=== PATIENT | female | born 1995 | race Caucasian/White ===

== ENCOUNTER 2019-03-20 09:43 | Inpatient (IN) | payer OTHER ==
[2019-03-20] MEDS ORDERED: LACTATED RINGER'S 1,000 ML IV (11:27)
[2019-03-20] MEDS ORDERED: LIDOCAINE 1% (MPF) 30 ML INJ INJ (11:30)
[2019-03-20] MEDS ORDERED: IBUPROFEN 600 MG TAB PO (11:30)
[2019-03-20] MEDS ORDERED: OXYTOCIN 30 UNITS/LR 500 ML IV ×2 (11:30)
[2019-03-20] MEDS ORDERED: MISOPROSTOL 200 MCG TAB PR (11:30)
[2019-03-20] MEDS ORDERED: CARBOPROST 250 MCG INJ IM (11:30)
[2019-03-20] MEDS ORDERED: BUTORPHANOL 2 MG INJ IV (11:30)
[2019-03-20] MEDS ORDERED: METHYLERGONOVINE 0.2 MG INJ IM (11:30)
[2019-03-20] MEDS ORDERED: MINERAL OIL LIGHT 10 ML VIAL TOP (11:30)
[2019-03-20] MEDS: LACTATED RINGER'S 1,000 ML IV ×2 (12:51→17:43)
[2019-03-20 13:30] LABS: ADD MAN DIFF? NO
[2019-03-20 13:31] LABS: WHITE BLOOD COUNT 7.8 10^3/ul (4.8-10.8)
[2019-03-20 13:31] LABS: BASOPHILS % 0.4 % (0.0-2.0); EOSINOPHILS % 0.1 % (0.0-7.0); HEMATOCRIT 33.9 % (37.0-47.0); HEMOGLOBIN 11.4 g/dl (12.0-16.0); LYMPHOCYTES # 1.5 10^3/ul (0.8-2.9); LYMPHOCYTES % 18.8 % (15.0-51.0); MEAN CORPUSCULAR HEMOGLOBIN 29.8 pg (29.0-33.0); MEAN CORPUSCULAR HGB CONC 33.6 g/dl (32.0-37.0); MEAN CORPUSCULAR VOLUME 88.7 fl (82.0-101.0); MEAN PLATELET VOLUME 10.5 fl (7.4-10.4); MONOCYTE # 0.5 10^3/ul (0.3-0.9); NEUTROPHIL # 5.8 10^3/ul (1.6-7.5); NEUTROPHILS % 74.4 % (39.0-77.0); PLATELET COUNT 181 10^3/UL (140-415); RED BLOOD COUNT 3.82 10^6/ul (4.20-5.40); RED CELL DISTRIBUTION WIDTH 14.2 % (11.5-14.5)
[2019-03-20] MEDS: MISOPROSTOL 50 MCG CAPSULE PO ×3 (13:40→21:00)
[2019-03-20 13:51] LABS: INR 0.82; PARTIAL THROMBOPLASTIN TIME 25.2 Sec (23.0-35.0); PROTIME 11.4 Sec (11.9-14.9); PT RATIO 0.9
[2019-03-20] MEDS: AMPICILLIN 2 GM/NS (PMX) 100 ML IV (15:11)
[2019-03-20 15:13] LABS: ALANINE AMINOTRANSFERASE 16 IU/L (13-69); ALBUMIN 3.4 g/dl (3.3-4.9); ALKALINE PHOSPHATASE 165 IU/L (42-121); ANION GAP 10 (5-13); ASPARTATE AMINO TRANSFERASE 26 IU/L (15-46); BILIRUBIN,INDIRECT 0.1 mg/dl (0-1.1); BILIRUBIN,TOTAL 0.1 mg/dl (0.2-1.3); BLOOD UREA NITROGEN 11 mg/dl (7-20); CALCIUM 9.7 mg/dl (8.4-10.2); CARBON DIOXIDE 20 mmol/L (21-31); CHLORIDE 109 mmol/L (97-110); CREATININE 0.69 mg/dl (0.44-1.00); Estimated GFR > 60 mL/min (>60); GLUCOSE 98 mg/dl (70-220); POTASSIUM 3.8 mmol/L (3.5-5.1); SODIUM 139 mmol/L (135-144); TOTAL PROTEIN 6.8 g/dl (6.1-8.1)
[2019-03-20 16:55] LABS: RUPTURE FETAL MEMBRANES POSITIVE (NEGATIVE)
[2019-03-20] MEDS: AMPICILLIN 1 GM/NS (PMX) 50 ML IV ×2 (18:59→22:58)
[2019-03-20 22:20] LABS: RAPID PLASMA REAGIN NONREACTIVE (NR)
[2019-03-21] MEDS: MISOPROSTOL 50 MCG CAPSULE PO ×5 (01:00→16:14)
[2019-03-21] MEDS: AMPICILLIN 1 GM/NS (PMX) 50 ML IV ×4 (02:44→15:00)
[2019-03-21] MEDS: LACTATED RINGER'S 1,000 ML IV ×2 (02:44→14:40)
[2019-03-21] MEDS: CALCIUM CARBONATE 500 MG CHEW TAB PO (04:18)
[2019-03-21] MEDS ORDERED: EPHEDrine SULFATE 50 MG/5 ML SYG (07:00)
[2019-03-21] MEDS ORDERED: OXYTOCIN 30 UNITS/LR 500 ML BAG IV (07:00)
[2019-03-21] MEDS: OXYTOCIN 30 UNITS/LR 500 ML IV ×3 (08:49→21:52)
[2019-03-21] MEDS ORDERED: LIDOCAINE 1% (MPF) 30 ML INJ INJ (10:00)
[2019-03-21] MEDS: MINERAL OIL LIGHT 10 ML VIAL TOP (10:00)
[2019-03-21] MEDS ORDERED: IBUPROFEN 600 MG TAB PO (10:00)
[2019-03-21] MEDS: ONDANSETRON 4 MG INJ IV ×2 (10:15→13:24)
[2019-03-21] MEDS: DEXTROSE 5%-LR 1,000 ML IV (10:52)
[2019-03-21] MEDS ORDERED: ONDANSETRON 4 MG INJ IV ×3 (13:18→14:30)
[2019-03-21] MEDS ORDERED: morphine SULFATE/PF (10 MG/10 ML) INJ (13:19)
[2019-03-21] MEDS: CITRIC ACID/NA CITRATE 30 ML CUP PO (13:25)
[2019-03-21] MEDS: METOCLOPRAMIDE 10 MG INJ IV (13:25)
[2019-03-21] MEDS: CEFAZOLIN 2 GM/50 ML (PMX) 50 ML IVPB (13:51)
[2019-03-21] MEDS ORDERED: DIPHENHYDRAMINE 50 MG INJ IV ×2 (14:30)
[2019-03-21] MEDS ORDERED: METOCLOPRAMIDE 10 MG INJ IV (14:30)
[2019-03-21] MEDS ORDERED: MEPERIDINE 25 MG INJ IV (14:30)
[2019-03-21] MEDS ORDERED: FENTAnyl 50 MCG/ML VIAL IV ×2 (14:30)
[2019-03-21] MEDS ORDERED: HYDROmorphONE 1 MG/5 ML IV SYRINGE IV ×3 (14:30)
[2019-03-21] MEDS ORDERED: HYDROmorphONE 0.5 MG/0.5 ML SYG IV ×2 (14:30)
[2019-03-21] MEDS ORDERED: KETOROLAC 30 MG INJ IV (14:30)
[2019-03-21] MEDS ORDERED: NALOXONE (0.4 MG/ML) INJ IV (14:30)
[2019-03-21] MEDS ORDERED: ALBUTEROL 0.083% (NEB) 2.5 MG/3 ML AMP HHN (14:30)
[2019-03-21] MEDS ORDERED: PHENYLephrine (100 MCG/ML) 10ML SYG (14:41)
[2019-03-21] MEDS ORDERED: OXYTOCIN 30 UNITS/LR 500 ML IV ×2 (15:00→16:00)
[2019-03-21] MEDS ORDERED: METHYLERGONOVINE 0.2 MG INJ IM (15:00)
[2019-03-21] MEDS ORDERED: HYDROCODONE/APAP (5/325) TAB PO ×2 (15:00)
[2019-03-21] MEDS ORDERED: MISOPROSTOL 200 MCG TAB PR (15:00)
[2019-03-21] MEDS ORDERED: CARBOPROST 250 MCG INJ IM (15:00)
[2019-03-21] MEDS ORDERED: METHYLERGONOVINE 0.2 MG TAB PO (15:00)
[2019-03-21] MEDS: SENNA/DOCUSATE NA (8.6MG/50MG) TAB PO (20:34)
[2019-03-22] MEDS: LANOLIN HPA 1 PKT TOP (05:57)
[2019-03-22] MEDS: KETOROLAC 30 MG INJ IV (05:57)
[2019-03-22] MEDS: LACTATED RINGER'S 1,000 ML IV ×2 (07:07→15:00)
[2019-03-22 08:29] LABS: ADD MAN DIFF? NO
[2019-03-22 08:37] LABS: BASOPHILS % 0.2 % (0.0-2.0); HEMATOCRIT 31.3 % (37.0-47.0); HEMOGLOBIN 10.5 g/dl (12.0-16.0); LYMPHOCYTES # 1.6 10^3/ul (0.8-2.9); LYMPHOCYTES % 12.7 % (15.0-51.0); MEAN CORPUSCULAR HEMOGLOBIN 29.7 pg (29.0-33.0); MEAN CORPUSCULAR HGB CONC 33.5 g/dl (32.0-37.0); MEAN CORPUSCULAR VOLUME 88.4 fl (82.0-101.0); MEAN PLATELET VOLUME 10.8 fl (7.4-10.4); MONOCYTE # 0.8 10^3/ul (0.3-0.9); MONOCYTES % 6.4 % (0.0-11.0); NEUTROPHIL # 9.7 10^3/ul (1.6-7.5); NEUTROPHILS % 80.1 % (39.0-77.0); PLATELET COUNT 154 10^3/UL (140-415); RED BLOOD COUNT 3.54 10^6/ul (4.20-5.40); RED CELL DISTRIBUTION WIDTH 14.3 % (11.5-14.5)
[2019-03-22 08:37] LABS: WHITE BLOOD COUNT 12.2 10^3/ul (4.8-10.8)
[2019-03-22 09:12] LABS: ANION GAP 6 (5-13); BLOOD UREA NITROGEN 7 mg/dl (7-20); CALCIUM 8.3 mg/dl (8.4-10.2); CARBON DIOXIDE 23 mmol/L (21-31); CHLORIDE 106 mmol/L (97-110); CREATININE 0.65 mg/dl (0.44-1.00); Estimated GFR > 60 mL/min (>60); GLUCOSE 74 mg/dl (70-220); POTASSIUM 3.6 mmol/L (3.5-5.1); SODIUM 135 mmol/L (135-144)
[2019-03-22] MEDS: SENNA/DOCUSATE NA (8.6MG/50MG) TAB PO ×2 (09:47→21:38)
[2019-03-22] MEDS: IBUPROFEN 800 MG TAB PO ×2 (13:09→21:38)
[2019-03-23] MEDS: IBUPROFEN 800 MG TAB PO ×2 (05:34→17:43)
[2019-03-23] MEDS: SENNA/DOCUSATE NA (8.6MG/50MG) TAB PO ×2 (08:52→21:14)
[2019-03-23] MEDS: LANOLIN HPA 1 PKT TOP (12:11)
[2019-03-23] MEDS: BISACODYL 10 MG SUPP PR (14:22)
[2019-03-23] MEDS: MAGNESIUM HYDROXIDE 30ML CUP PO (14:22)
[2019-03-24 08:14] LABS: ADD MAN DIFF? NO
[2019-03-24 08:21] LABS: BASOPHILS % 0.4 % (0.0-2.0); HEMATOCRIT 30.4 % (37.0-47.0); HEMOGLOBIN 10.2 g/dl (12.0-16.0); LYMPHOCYTES # 1.3 10^3/ul (0.8-2.9); LYMPHOCYTES % 12.7 % (15.0-51.0); MEAN CORPUSCULAR HEMOGLOBIN 30.4 pg (29.0-33.0); MEAN CORPUSCULAR HGB CONC 33.6 g/dl (32.0-37.0); MEAN CORPUSCULAR VOLUME 90.5 fl (82.0-101.0); MEAN PLATELET VOLUME 10.3 fl (7.4-10.4); MONOCYTE # 0.6 10^3/ul (0.3-0.9); MONOCYTES % 5.6 % (0.0-11.0); NEUTROPHIL # 8.4 10^3/ul (1.6-7.5); NEUTROPHILS % 80.8 % (39.0-77.0); PLATELET COUNT 193 10^3/UL (140-415); RED BLOOD COUNT 3.36 10^6/ul (4.20-5.40); RED CELL DISTRIBUTION WIDTH 14.2 % (11.5-14.5)
[2019-03-24 08:21] LABS: WHITE BLOOD COUNT 10.3 10^3/ul (4.8-10.8)
[2019-03-24] MEDS: SENNA/DOCUSATE NA (8.6MG/50MG) TAB PO (09:00)
[2019-03-24] MEDS: IBUPROFEN 800 MG TAB PO (09:07)
[2019-03-24] MEDS: DIPHTH/TET/ACEL PERTUSS (ADULT) 0.5 ML VIAL IM* (09:32)
[2019-03-24] MEDS: MEASLES,MUMPS,RUBELLA VACCINE INJ SC* (09:32)
== END 2019-03-24 15:05 | disposition home or self-care (01) | DRG 788 ==
LOC: OBT 09:43 → L-D 09:43 → PP1 03-21 17:39 → OBT 11:30 → L-D 11:30
PROVIDERS: Obstetrics & Gynecology
PROC: 10D00Z1 Extraction of Products of Conception, Low, Open Approach (ICD-10-PCS; principal; 2019-03-21 13:30)
DX: O36.63X0 Maternal care for excessive fetal growth, third trimester, not applicable or unspecified (principal); O62.0 Primary inadequate contractions; G89.18 Other acute postprocedural pain; O99.214 Obesity complicating childbirth; E66.9 Obesity, unspecified; O69.1XX0 Labor and delivery complicated by cord around neck, with compression, not applicable or unspecified; Z3A.39 39 weeks gestation of pregnancy; Z37.0 Single live birth
CPT/HCPCS: 76815; 76818; 80048; 80053; 84112; 85025; 85610; 85730; 86592; 86850; 86900; 86901; 87070; 87102; 99464